=== PATIENT | female | born 1995 | race Two or more races ===

== ENCOUNTER 2016-09-24 19:26 | Emergency (ER) | payer MEDICAID ==
[~2016-09-24] VITALS: Ht 157.5 cm; Wt 52.2 kg
[2016-09-24 19:39] VITALS: BP 120/81
[2016-09-24] MEDS ORDERED: ERYTHROMYCIN3.5 GM RIGHT EYE (19:43)
[2016-09-24] MEDS ORDERED: IBUPROFEN600 MG ORAL (19:43)
[2016-09-24 19:52] VITALS: BP 120/81
--- NOTE | 2016-09-24 20:35 | Emergency Room Report ---
History of Present Illness General Chief Complaint: Eye Problems Source: Patient Present Illness HPI The patient is a 21-year-old female presenting for right eye pain. She noticed a lump on the right upper eyelid yesterday as well as eye redness and yellow discharge from the eye. She denies any known sick contacts. Pain is described as an 8/10 dull ache it is worse with touch. She denies any radiating pain. She denies fever or chills. She denies changes in vision Allergies: Coded Allergies: No Known Allergies (Unverified , 09/24/16) Patient History Past Medical History: see triage record Pertinent Family History: none Last Menstrual Period: 2 weeks ago Now: No Reviewed Nursing Documentation: PMH: Agreed, PSxH: Agreed Nursing Documentation-PMH Past Medical History: No Stated History Review of Systems All Other Systems: negative except mentioned in HPI Physical Exam Vital Signs Date Time Temp Pulse Resp B/P Pulse Ox O2 Delivery O2 Flow Rate FiO2 09/24/16 19:29 98.4 83 16 120/81 99 Room Air Sp02 EP Interpretation: reviewed, normal General Appearance: no apparent distress, alert, GCS 15, non-toxic Head: normocephalic, atraumatic Eyes: right eye lid inflammation - upper, bilateral eye EOMI, bilateral eye PERRL ENT: hearing grossly normal, normal pharynx, no angioedema, normal voice Neck: full range of motion, supple/symm/no masses Musculoskeletal: back normal, gait/station normal, normal range of motion, non- tender Neurologic: alert, oriented x3, responsive, motor strength/tone normal, sensory intact, speech normal Psychiatric: judgement/insight normal, memory normal, mood/affect normal, no suicidal/homicidal ideation Skin: normal color, no rash, warm/dry, well hydrated Lymphatic: no adenopathy Medical Decision Making PA Attestation Dr Dill is my supervising physician. Patient management was discussed with my supervising physician Diagnostic Impression: Primary Impression: Hordeolum external Qualified Codes: H00.011 - Hordeolum externum right upper eyelid ER Course The patient is a 21-year-old female presenting for right eye pain Differential diagnoses considered but not limited to allergic conjunctivitis, bacterial conjunctivitis, viral conjunctivitis, blepharitiis, hordeolum PE: Afebrile. No apparent distress Right eye: There is a papule of the mid upper eyelid margin. Tender to palpation. Erythematous. There is a slight yellow discharge at the medial canthus. Otherwise exam unremarkable The patient is given instructions regarding warm compress. To be discharged home and needs to followup with primary doctor Last Vital Signs Date Time Temp Pulse Resp B/P Pulse Ox O2 Delivery O2 Flow Rate FiO2 09/24/16 19:52 98.4 76 16 120/81 99 Room Air Status: improved Disposition: HOME, SELF-CARE Condition: Improved Scripts Erythromycin Base (ERYTHROMYCIN*) 3.5 Gm Oint...g. 1 APPLIC RIGHT EYE Q8HR, #3.5 GM 0 Refills Prov: KATT STONE 09/24/16 Ibuprofen* (MOTRIN*) 600 Mg Tablet 600 MG ORAL Q8H Y for For Pain, #30 TAB 0 Refills Prov: KATT STONE 09/24/16 Referrals: NOT CHOSEN IPA/MD,REFERRING (PCP) Patient Instructions: Verna Additional Instructions: I discussed my findings with the patient. All questions and concerns have been answered. Treatment and medication compliance have been addressed. I advised the patient that they need to follow up with PMD in 3-5 days. Return to ED if symptoms worsen, new symptoms arise, or if needed for any reason. Patient verbalized understanding of discharge instructions. KATT STONE Sep 24, 2016 20:35
== END 2016-09-24 19:50 | disposition home or self-care (01) ==
LOC: EMR 19:50
DX: H00.011 Hordeolum externum right upper eyelid (principal)
CPT/HCPCS: 99284

== ENCOUNTER 2018-08-20 00:57 | Emergency (ER) | payer MEDICAID ==
[~2018-08-20] VITALS: Ht 157.5 cm; Wt 52.2 kg
[~2018-08-20 00:57] MED LIST: ERYTHROMYCIN3.5 GM RIGHT EYE; IBUPROFEN600 MG ORAL
[2018-08-20] MEDS ORDERED: METOCLOPRA10 MG/10 M ORAL (01:17)
[2018-08-20] MEDS ORDERED: PRENATAL VITS (01:17)
--- NOTE | 2018-08-20 01:23 | NUR ---
ED Nurse Note: Pelvic cramping since this morning; denies vag bleeding/discharge. Six weeks . Pt is AO x 4times, VSS, on room air no distress. ERMD seen Pt at bedside.
--- NOTE | 2018-08-20 01:44 | NUR ---
ED Nurse Note: Blood and Urine sample sent to lab.
[2018-08-20 01:47] LABS: APPEARANCE,URINE SLIGHTLY CLOUDY; BILIRUBIN, URINE NEGATIVE (NEGATIVE); GLUCOSE, URINE (UA) NEGATIVE (NEGATIVE); KETONES,URINE 3+ (NEGATIVE); LEUKOCYTE ESTERASE ,URINE 1+ (NEGATIVE); NITRITE,URINE NEGATIVE (NEGATIVE); PH,URINE 7 (4.5-8.0); PROTEIN,URINE 1+ (NEGATIVE); UROBILINOGEN,URINE NORMAL MG/DL (0.0-1.0)
--- NOTE | 2018-08-20 01:57 | NUR ---
ED Nurse Note: Pt went to CT scan
[2018-08-20 01:58] LABS: BASOPHILS % (AUTO) 0.8 % (0.0-2.0); EOSINOPHILS % (AUTO) 0.7 % (0.0-3.0); HEMATOCRIT 39.4 % (37.0-47.0); HEMOGLOBIN 13.7 G/DL (12.0-16.0); LYMPHOCYTES % (AUTO) 28.5 % (20.0-45.0); MEAN CORPUSCULAR VOLUME 87 FL (80-99); MONOCYTES % (AUTO) 8.4 % (1.0-10.0); NEUTROPHILS % (AUTO) 61.7 % (45.0-75.0); PLATELET COUNT 242 K/UL (150-450); RED BLOOD COUNT 4.54 M/UL (4.20-5.40); RED CELL DISTRIBUTION WIDTH 11.2 % (11.6-14.8)
[2018-08-20 02:01] LABS: COLOR,URINE YELLOW
[2018-08-20 02:13] LABS: ANION GAP 12 mmol/L (5-15); BLOOD UREA NITROGEN 8 mg/dL (7-18); CALCIUM 9.2 MG/DL (8.5-10.1); CARBON DIOXIDE 25 MMOL/L (21-32); CHLORIDE 99 MMOL/L (98-107); CREATININE 0.6 MG/DL (0.55-1.30); POTASSIUM 3.2 MMOL/L (3.5-5.1); SODIUM 136 MMOL/L (136-145)
[2018-08-20 02:18] LABS: ALANINE AMINOTRANSFERASE 15 U/L (12-78); ALBUMIN 4.5 G/DL (3.4-5.0); ALBUMIN/GLOBULIN RATIO 1.5 (1.0-2.7); ALKALINE PHOSPHATASE 49 U/L (46-116); ASPARTATE AMINO TRANSFERASE 12 U/L (15-37); BILIRUBIN,TOTAL 0.4 MG/DL (0.2-1.0)
--- NOTE | 2018-08-20 02:20 | NUR ---
ED Nurse Note: PT BACK FROM US. FAMILY MEMBER AT BEDSIDE. AO4. NAD.
[2018-08-20] MEDS ORDERED: NITROFURANTOIN100 M2 ORAL (03:14)
--- NOTE | 2018-08-20 03:31 | NUR ---
ER DISCHARGE NOTE: Patient is cleared to be discharged per ERMD, pt is aox4, on room air, with stable vital signs. pt was given dc and prescription instructions, pt was able to verbalize understanding, pt id band and iv site removed without complications. pt is able to ambulate with steady gait with boy friend. pt took all belongings.
[2018-08-20 03:32] VITALS: BP 133/76
--- NOTE | 2018-08-20 03:40 | Emergency Room Report ---
History of Present Illness General Chief Complaint: Complications Source: Patient Present Illness HPI 23-year-old female presents ED for evaluation. Patient complaining of lower cramping pain since this morning. Pain is 5 out of 10, nonradiating. States she is about 6 weeks . Has not had an ultrasound yet. Has had care. Denies any vaginal bleeding. No other aggravating relieving factors. Denies any other associated symptoms Allergies: Coded Allergies: No Known Allergies (Unverified , 09/24/16) Patient History Past Medical History: none Past Surgical History: none Pertinent Family History: none Social History: Denies: smoking, alcohol use, drug use Last Menstrual Period: 07/06/18 Now: Yes - Six weeks : 2 Para: 1 Immunizations: UTD Reviewed Nursing Documentation: PMH: Agreed; PSxH: Agreed Nursing Documentation-PMH Past Medical History: No Stated History Review of Systems All Other Systems: negative except mentioned in HPI Physical Exam Vital Signs Date Time Temp Pulse Resp B/P (MAP) Pulse Ox O2 Delivery O2 Flow Rate FiO2 08/20/18 01:11 98.2 79 16 121/71 (88) 98 Room Air Sp02 EP Interpretation: reviewed, normal General Appearance: no apparent distress, alert, GCS 15, non-toxic Head: normocephalic, atraumatic Eyes: bilateral eye normal inspection, bilateral eye PERRL ENT: hearing grossly normal, normal pharynx, no angioedema, normal voice Neck: full range of motion, supple/symm/no masses Respiratory: chest non-tender, lungs clear, normal breath sounds, speaking full sentences Cardiovascular #1: regular rate, rhythm, no edema Cardiovascular #2: 2+ carotid (R), 2+ carotid (L), 2+ radial (R), 2+ radial (L) , 2+ dorsalis pedis (R), 2+ dorsalis pedis (L) Gastrointestinal: normal bowel sounds, non tender, soft, non-distended, no guarding, no rebound Rectal: deferred Genitourinary: normal inspection, no CVA tenderness Musculoskeletal: back normal, gait/station normal, normal range of motion, non- tender Neurologic: alert, oriented x3, responsive, motor strength/tone normal, sensory intact, speech normal Psychiatric: judgement/insight normal, memory normal, mood/affect normal, no suicidal/homicidal ideation Reflexes: 3+ bicep (R), 3+ bicep (L), 3+ tricep (R), 3+ tricep (L), 3+ knee (R) , 3+ knee (L) Skin: normal color, no rash, warm/dry, well hydrated Lymphatic: no adenopathy Medical Decision Making Diagnostic Impression: Primary Impression: UTI (urinary tract infection) Qualified Codes: N39.0 - Urinary tract infection, site not specified Additional Impression: Threatened ER Course Hospital Course 23-year-old female presents to ED complaining of lower abdominal pain. 6 weeks Differential diagnoses include: gastrits, gastroenterits, ectopic , ovarian torsion/cyst, UTI Clinical course Patient placed on stretcher in ED. After initial history and physical I ordered labs, US Labs-no leukocytosis, electrolytes okay, beta hCG greater than 24,000, UA + bacteria Pelvic ultrasound - intrauterine gestational sac with yolk sac. no pole or HR. Findings with patient. Concern for failure. The beta hCG quantitative does not seem to correlate with the ultrasound recommend close follow-up with [facility] for serial beta-hCG and ultrasound. Patient understands Diagnosis - threatneed , UTI Stable and discharged to home with Rx macrobid. Followup with PMD/[facility]. Return to ED if symptoms recur or worsen Labs Test 08/20/18 01:25 08/20/18 01:45 Urine Color Yellow Urine Appearance Slightly cloudy Urine pH 7 (4.5-8.0) Urine Specific [place] 1.010 (1.005-1.035) Urine Protein 1+ (NEGATIVE) Urine Glucose (UA) Negative (NEGATIVE) Urine Ketones 3+ (NEGATIVE) Urine Blood 4+ (NEGATIVE) Urine Nitrite Negative (NEGATIVE) Urine Bilirubin Negative (NEGATIVE) Urine Urobilinogen Normal MG/DL (0.0-1.0) Urine Leukocyte Esterase 1+ (NEGATIVE) Urine RBC 15-20 /HPF (0 - 2) Urine WBC 2-4 /HPF (0 - 2) Urine Squamous Epithelial Cells Many /LPF (NONE/OCC) Urine Bacteria Moderate /HPF (NONE) Urine HCG, Qualitative Positive (NEGATIVE) White Blood Count 6.0 K/UL (4.8-10.8) Red Blood Count 4.54 M/UL (4.20-5.40) Hemoglobin 13.7 G/DL (12.0-16.0) Hematocrit 39.4 % (37.0-47.0) Mean Corpuscular Volume 87 FL (80-99) Mean Corpuscular Hemoglobin 30.1 PG (27.0-31.0) Mean Corpuscular Hemoglobin Concent 34.7 G/DL (32.0-36.0) Red Cell Distribution Width 11.2 % (11.6-14.8) Platelet Count 242 K/UL (150-450) Mean Platelet Volume 6.3 FL (6.5-10.1) Neutrophils (%) (Auto) 61.7 % (45.0-75.0) Lymphocytes (%) (Auto) 28.5 % (20.0-45.0) Monocytes (%) (Auto) 8.4 % (1.0-10.0) Eosinophils (%) (Auto) 0.7 % (0.0-3.0) Basophils (%) (Auto) 0.8 % (0.0-2.0) Sodium Level 136 MMOL/L (136-145) Potassium Level 3.2 MMOL/L (3.5-5.1) Chloride Level 99 MMOL/L (98-107) Carbon Dioxide Level 25 MMOL/L (21-32) Anion Gap 12 mmol/L (5-15) Blood Urea Nitrogen 8 mg/dL (7-18) Creatinine 0.6 MG/DL (0.55-1.30) Estimat Glomerular Filtration Rate > 60 mL/min (>60) Glucose Level 93 MG/DL (74-106) Calcium Level 9.2 MG/DL (8.5-10.1) Total Bilirubin 0.4 MG/DL (0.2-1.0) Aspartate Amino Transf (AST/SGOT) 12 U/L (15-37) Alanine Aminotransferase (ALT/SGPT) 15 U/L (12-78) Alkaline Phosphatase 49 U/L (46-116) Total Protein 7.5 G/DL (6.4-8.2) Albumin 4.5 G/DL (3.4-5.0) Globulin 3.0 g/dL Albumin/Globulin Ratio 1.5 (1.0-2.7) Lipase 102 U/L (73-393) Human Chorionic Gonadotropin, Quant 74404 mIU/mL (1-6) CT/MRI/US Diagnostic Results CT/MRI/US Diagnostic Results : Imaging Test Ordered: OB US Impression Intrauterine gestational sac with yolk sac. No pole or heart rate demonstrated. Considerations include early viable and failure. Recommend follow-up in 7-10 days. Ovaries are normal in size and demonstrate blood flow Last Vital Signs Date Time Temp Pulse Resp B/P (MAP) Pulse Ox O2 Delivery O2 Flow Rate FiO2 08/20/18 01:11 98.2 79 16 121/71 (88) 98 Room Air Status: improved Disposition: HOME, SELF-CARE Condition: Stable Scripts Nitrofurantoin Monohyd/M-Cryst* (MACROBID 100 MG*) 100 Mg Capsule 100 MG ORAL EVERY 12 HOURS for 7 Days, CAP Prov: Chavez Mckeon MD 08/20/18 Patient Instructions: Threatened Miscarriage, [id number] Additional Instructions: followup with your OBGYN for repeat BHCG and US Chavez Mckeon MD Aug 20, 2018 03:40
--- NOTE | 2018-08-20 15:40 | Diagnostic Imaging Report ---
Indication: Pain, cramping, positive test Technique: Transabdominal and transvaginal images of the pelvis. Doppler interrogation of the ovaries Comparison: none Findings: Uterus is anteverted and slightly retroflexed, measures 9.4 cm length by 4.6 cm AP. Within the endometrium, there is a gestational sac. This contains a yolk sac. No pole demonstrated. No heart activity demonstrated. Mean sac diameter is 12 mm, corresponding estimated gestational age of 4 weeks 2 days No evidence of subchorionic hemorrhage. No myometrial abnormality. The left ovary measures 3.2 cm length. Right ovary measures 2.7 cm length. No adnexal mass demonstrated. Normal ovarian Doppler flow demonstrated. No free cul-de-sac fluid. Impression: Intrauterine gestational sac, estimated gestational age 4 weeks 2 days by mean sac diameter measurement. No definite heart activity demonstrated. This may indicate very early with resultant nonvisualization of heart activity, versus nonviable . Correlation with serial beta hCGs with consideration for follow-up sonography is indicated is recommended No unusual findings otherwise. This agrees with the preliminary interpretation provided overnight by [facility] teleradiology service.
== END 2018-08-20 03:34 | disposition home or self-care (01) ==
LOC: EMR 02:25
DX: O20.0 Threatened abortion (principal); O23.41 Unspecified infection of urinary tract in pregnancy, first trimester; Z3A.01 Less than 8 weeks gestation of pregnancy
CPT/HCPCS: 36415; 76801; 76830; 80053; 81003; 81025; 83690; 84702; 85025; 87086; 99284